=== PATIENT | female | born 2000 | race Caucasian/White ===

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

== ENCOUNTER → 2020-06-27 | Outpatient (CLI) | payer OTHER ==
--- NOTE | 2020-06-28 08:21 | RAD ---
EXAM DESCRIPTION: Ankle,Right 3 Views CLINICAL HISTORY: 19 years, Female, INJURY OF ANKLE COMPARISON: None. TECHNIQUE: AP/lateral/oblique of the Right or left ankle FINDINGS: Intact medial and lateral malleolus. No significant soft tissue swelling. Intact proximal metatarsals. Intact dome of the talus. Lateral view shows no evidence of fracture of the body of the talus or calcaneus. No calcaneal spurring is seen. No ankle joint narrowing, spurring or effusion. IMPRESSION: Negative for fracture or dislocation. Electronically signed by: Jim Jameson MD 06/28/2020 8:20 AM CDT
== END ==
LOC: RAD 12:44
PROVIDERS: ATTEND Nurse Practitioner
DX: S99.911A Unspecified injury of right ankle, initial encounter (principal)

== ENCOUNTER → 2020-08-15 | Outpatient (CLI) | payer OTHER | LOC: YCFC.O 11:46 | PROVIDERS: ATTEND Nurse Practitioner | DX: Z03.818 Encounter for observation for suspected exposure to other biological agents ruled out (principal); Z20.828 Contact with and (suspected) exposure to other viral communicable diseases ==

== ENCOUNTER → 2020-10-22 | Outpatient (CLI) | payer OTHER | LOC: YCFC.O 15:43 | PROVIDERS: ATTEND Nurse Practitioner Family | DX: Z20.828 Contact with and (suspected) exposure to other viral communicable diseases (principal) ==